=== PATIENT | male | born 1985 | race Caucasian/White ===

== ENCOUNTER 2018-01-26 15:16 | Emergency (ER) | payer SELFPAY ==
[~2018-01-26] VITALS: Ht 172.7 cm; Wt 86.2 kg
[2018-01-26 15:16] VITALS: Ht 172.7 cm; Wt 86.2 kg
[2018-01-26 16:27] VITALS: BP 129/76
== END 2018-01-26 16:27 | disposition home or self-care (01) ==
LOC: ED 15:16
DX: F41.9 Anxiety disorder, unspecified (principal)